=== PATIENT | male | born 1960 | race Caucasian/White ===

== ENCOUNTER 2020-01-04 10:54 | Inpatient (IN) ==
[2020-01-04] MEDS ORDERED: DULCOLAX PR PRN (11:19)
[2020-01-04] MEDS ORDERED: NICOTINE GUM BUCCAL PRN (11:19)
[2020-01-04] MEDS ORDERED: ZOFRAN IM PRN (11:19)
[2020-01-04] MEDS ORDERED: D5W 1,000 ML IV PRN (11:19)
[2020-01-04] MEDS ORDERED: MAALOX PLUS LIQUID PO PRN (11:19)
[2020-01-04] MEDS ORDERED: IMODIUM PO PRN (11:19)
[2020-01-04] MEDS ORDERED: TYLENOL PO PRN (11:19)
[2020-01-04] MEDS ORDERED: DESYREL PO PRN (11:19)
[2020-01-04] MEDS ORDERED: MOTRIN PO PRN (11:19)
[2020-01-04] MEDS ORDERED: PHENOBARBITAL IV PRN (11:19)
[2020-01-04] MEDS ORDERED: ZOFRAN IV PRN (11:19)
[2020-01-04] MEDS ORDERED: ZOFRAN ODT PO PRN (11:19)
[2020-01-04] MEDS ORDERED: TUBERSOL ID ONE (11:19)
[2020-01-04] MEDS ORDERED: SEROQUEL PO PRN (11:19)
[2020-01-04] MEDS ORDERED: SENOKOT PO PRN (11:19)
[2020-01-04] MEDS ORDERED: NICODERM PATCH TD PRN (11:19)
[2020-01-04] MEDS ORDERED: PNEUMOVAX 23 IM ONE (12:15)
[2020-01-04 12:16] LABS: HEMATOCRIT 44.9 % (42.0-52.0); HEMOGLOBIN 15.7 g/dL (14.0-18.0); MCH 29.7 PG (27-31); MCV 84.9 FL (81-99); MPV 10.7 FL (7.4-10.4); RBC 5.29 XMIL (4.7-6.1); RDW 12.7 % (11.5-14.5); WBC 11.36 X1000 (4.8-10.8)
[2020-01-04] MEDS ORDERED: ATARAX PO PRN (12:26)
[2020-01-04] MEDS ORDERED: SALINE LOCK IV FLUID XX ONE (12:26)
[2020-01-04] MEDS ORDERED: ROBAXIN PO PRN (12:26)
[2020-01-04] MEDS ORDERED: BENTYL PO PRN (12:26)
[2020-01-04 12:47] LABS: AGAP 15; ALBUMIN 4.2 g/dL (3.5-5.0); ALKALINE PHOSPHATASE 58 U/L (32-122); AMYLASE 35 U/L (20-200); BUN 16 mg/dL (8-22); CALCIUM 9.2 mg/dL (8.8-10.2); CHLORIDE 99 mmol/L (98-107); COSMO 282; CREATININE 0.7 mg/dL (0.7-1.2); ESTIMATED GFR > 60; GLUCOSE 217 mg/dL (70-104); GOT 37 U/L (10-34); GPT 68 U/L (10-44); LIPASE 37 U/L (13-60); POTASSIUM 3.4 mmol/L (3.5-5.1); SODIUM 137 mmol/L (136-145); TCO2 23 mmol/L (25-35); TOTAL PROTEIN 6.6 g/dL (6.3-8.3)
[2020-01-04 12:49] LABS: URINE SOURCE CLEAN CATCH
[2020-01-04 12:54] LABS: BILIRUBIN URINE NEGATIVE (NEGATIVE); BLOOD URINE NEGATIVE (NEGATIVE); COLOR YELLOW; GLUCOSE URINE >1000 mg/dL (NEGATIVE); KETONE URINE 10 mg/dL (NEGATIVE); LEUKOCYTES URINE NEGATIVE (NEGATIVE); NITRITE URINE NEGATIVE (NEGATIVE); PROTEIN URINE TRACE mg/dL (NEGATIVE); TURBIDITY URINE CLEAR (CLEAR); UR EPITHELIAL CELLS <10 /HPF (<10); URINE BACTERIA NEGATIVE /HPF; URINE RBC <10 /HPF (<10); URINE WBC <10 /HPF (<10); UROBILINOGEN URINE NORMAL (NORMAL)
[2020-01-04 12:58] LABS: INR 0.93; PROTIME 12.9 Seconds (11.0-16.0)
[2020-01-04 13:10] LABS: UR AMPHETAMINES QUAL NONE DETECTED (NONE DETECT); UR BARBITUATES QUAL NONE DETECTED (NONE DETECT); UR BENZODIAZEPIN QUAL NONE DETECTED (NONE DETECT); UR COCAINE QUAL NONE DETECTED (NONE DETECT); UR METHADONE QUAL NONE DETECTED (NONE DETECT)
[2020-01-04 13:11] LABS: UR CANNABINOIDS QUAL NONE DETECTED (NONE DETECT); UR METHAMPHETAMINE QUAL NONE DETECTED (NONE DETECT); UR OPIATES QUAL NONE DETECTED (NONE DETECT); UR OXYCODONE QUAL NONE DETECTED (NONE DETECT); UR PCP QUAL NONE DETECTED (NONE DETECT); UR PROPOXYPHENE QUAL NONE DETECTED (NONE DETECT); UR TCA QUAL NONE DETECTED (NONE DETECT)
[2020-01-04] MEDS: LIBRIUM PO SCH ×2 (13:46→17:54)
[2020-01-04] MEDS ORDERED: M.V.I.-12 10 ML, FOLIC ACID 1 MG, MAGNESIUM SULFATE 1 GM, THIAMINE 100 MG in NS 1,000 ML IV ONE (14:00)
[2020-01-04] MEDS: IMODIUM PO PRN (17:57)
[2020-01-05] MEDS: LIBRIUM PO SCH ×4 (00:27→18:01)
--- NOTE | 2020-01-05 07:29 | HISTORY AND PHYSICAL ---
CHIEF COMPLAINT: Nausea. HISTORY OF PRESENT ILLNESS: Patient is a very pleasant 59-year-old male, who notes he had been sober for 2-1/2 years and intentionally started drinking again. He currently is drinking heavily. He has been having significant withdrawal symptoms of nausea, vomiting, abdominal pain, myalgias. SOCIAL HISTORY: Patient is single. He is employed. Lives at home in [place]. 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 MEDICINES: Metformin. ALLERGIES: No known drug allergies. REVIEW OF SYSTEMS: CIWA score is elevated secondary to nausea, vomiting, myalgias, tremors, paresthesias, paroxysmal sweating. Does have a history of seizures from withdrawal. SUBSTANCE ABUSE HISTORY: In 1976 and 1977, he was at [facility] for outpatient counseling. In 1978, he was at [facility] for 28 days. In 2016, he was at [facility] for 2 days and then left. States he has been abusing pills off and on, has been taking Tianaa for about 4 months, over 100 dollars a day. Has been drinking off and on since age 13; currently he is drinking 2 to 3/5 a day plus a six-pack of beer. It had been almost 29 years since his last drink until a couple of months ago. He tried cocaine at 23; only used for about 3 years recreationally during the weekends. Started smoking at 16; currently smokes a pack a day. Started opiates at 16; had been abusing pills for several years, has stopped for the past 2 years. He has been taking Tianaa, which are [id number]. FAMILY HISTORY: Noncontributory. PHYSICAL EXAMINATION: VITAL SIGNS: Reviewed. GENERAL: He is awake, alert. He is in no respiratory distress. He is pleasant to talk with. He is sitting up on the side of the bed, alert and oriented x3. HEENT: Normocephalic. NECK: Supple. CARDIOVASCULAR: Regular rate. CHEST: Clear. ABDOMEN: Soft. EXTREMITIES: Moves all extremities. NEUROLOGIC: No focal changes. SKIN: Warm, dry, no rashes. He does have some tremors with his arms at rest, has some paroxysmal sweating. ASSESSMENT: 1. Nausea, vomiting. 2. Abdominal pain. 3. Tremors. 4. Myalgias. 5. Paresthesias. 6. Paroxysmal sweating. 7. Polysubstance use and abuse with alcohol and opiates. 8. Chronic tobacco abuse. 9. Diabetes. 10. High cholesterol. PLAN: We are going to admit patient to the hospital, place him on high-dose Librium taper. Begin counseling. Follow for seizures. Further orders as needed. cc: Nadir Johnson MD
[2020-01-05] MEDS: VITAMIN B-1 PO SCH ×2 (07:42→10:59)
[2020-01-05] MEDS: FOLIC ACID PO SCH ×2 (07:43→10:59)
[2020-01-05] MEDS: THERA M PLUS PO SCH ×2 (07:43→10:59)
[2020-01-05] MEDS: GLUCOPHAGE PO SCH (15:16)
--- NOTE | 2020-01-05 16:20 | PROGRESS NOTE ---
DATE: 01/05/2020 SUBJECTIVE: The patient is sitting in the bed. States he is feeling okay. Denies any fevers or chills. Notes that his tremors are improving. His abdominal pain is improving. PHYSICAL EXAMINATION: Vital Signs: Reviewed. Temperature 97.8 degrees, pulse 57, respiratory rate 18, BP 149/78. General: The patient is awake, pleasant, in no distress. HEENT: Normocephalic. Neck: Supple. Cardiovascular: Regular rate. Chest: Clear. Abdomen: Soft. Extremities: Moves all extremities. ASSESSMENT: 1. Nausea and vomiting. 2. Abdominal pain. 3. Myalgias. 4. Paresthesias. 5. Paroxysmal sweating. 6. Opiate abuse withdrawal and stable. 7. Alcohol abuse withdrawal in stabilization. PLAN: We are going to continue the patient in the hospital, continue Librium taper, continue counseling, and restart his metformin. Further orders as needed. cc: Nadir Johnson MD
[2020-01-06] MEDS: LIBRIUM PO SCH ×4 (00:15→20:30)
[2020-01-06] MEDS: IMODIUM PO PRN (00:18)
--- NOTE | 2020-01-06 10:05 | PROGRESS NOTE ---
DATE: 01/06/2020 SUBJECTIVE: Patient notes that he is feeling better from a withdrawal standpoint, although he is feeling very tired, fatigued, weak. He is tremulous. He is having difficulty ambulating due to his weakness. PHYSICAL EXAMINATION: Vital Signs: Reviewed. General: He is awake, alert. He is in no respiratory distress, sitting up on the side of the bed. HEENT: Normocephalic. Neck: Supple. Cardiovascular: Regular rate. Chest: Clear, nonlabored. No wheezing. Abdomen: Soft, nondistended, nontender. Extremities: Moves all extremities. Neurologic: No focal changes. ASSESSMENT: 1. Generalized weakness. 2. Nausea, vomiting. 3. Abdominal pain. 4. Myalgias. 5. Paresthesias. 6. Paroxysmal sweating. 7. Alcohol abuse withdrawal and stabilization. PLAN: We are going to decrease patient's Librium, continue counseling. If he tolerates, hopefully he can discharge home tomorrow. cc: Nadir Johnson MD
[2020-01-06] MEDS: FOLIC ACID PO SCH (10:28)
[2020-01-06] MEDS: VITAMIN B-1 PO SCH (10:28)
[2020-01-06] MEDS: THERA M PLUS PO SCH (10:28)
[2020-01-06] MEDS: GLUCOPHAGE PO SCH (10:28)
[2020-01-07 08:05] VITALS: BP 127/73
[2020-01-07] MEDS: VITAMIN B-1 PO SCH (09:04)
[2020-01-07] MEDS: THERA M PLUS PO SCH (09:04)
[2020-01-07] MEDS: GLUCOPHAGE PO SCH (09:05)
[2020-01-07] MEDS: FOLIC ACID PO SCH (09:05)
[2020-01-07] MEDS: LIBRIUM PO SCH (09:05)
--- NOTE | 2020-01-07 14:44 | DISCHARGE SUMMARY ---
ADMISSION DATE: 01/04/2020 DISCHARGE DATE: 01/07/2020 DISCHARGE DIAGNOSES: 1. Nausea and vomiting. 2. Abdominal pain. 3. Myalgias. 4. Paresthesias. 5. Alcohol abuse, withdrawal, and stabilization. 6. Recent opiate abuse, withdrawal, and stabilization. CONSULTATIONS: None. PROCEDURES: None. BRIEF HOSPITAL COURSE: The patient is a 59-year-old male who presented to [facility] secondary to nausea, vomiting, abdominal pain, myalgias, paresthesias, paroxysmal sweating, and tremors. He was placed on high-dose Librium taper, continued to improve. On discharge he is awake, alert. He is in no distress. DISPOSITION: Patient is out of alcohol withdrawal at this point. He will be discharged home with a very short, low-dose Librium taper. We did not start naltrexone, although he certainly should start that in the future. We did write a prescription. Given his recent opiate use, we will wait another 5 days before starting this. Patient is aware and understands how and when to use. He needs to follow up outpatient with treatment facility of choice. He needs life counseling as well as drug counseling. cc: Nadir Johnson MD
== END 2020-01-07 10:05 | disposition home or self-care (01) | DRG 392 ==
LOC: P.DIRADM 10:54 → P.MEDSURG 11:11
PROVIDERS: ADMIT Family Medicine; ATTEND Family Medicine